=== PATIENT | female | born 1995 | race Asian ===

== ENCOUNTER 2020-09-27 11:09 | Outpatient (REF) | payer OTHER, SELFPAY ==
[2020-09-28 12:27] LABS: BV Int Neg Control Negative (Negative); BV Int Pos Control Positive (Positive)
[2020-09-28 18:57] LABS: C. trachomatis RNA TMA NOT DETECTED (NOT DETECTED); N. gonorrhoeae RNA TMA NOT DETECTED (NOT DETECTED)
== END 2020-09-27 11:10 | disposition home or self-care (01) ==
LOC: HO.LAB 11:09
PROVIDERS: PCP Family Medicine; Visit Provider Advanced Practice Midwife
DX: Z01.411 Encounter for gynecological examination (general) (routine) with abnormal findings (principal); N89.8 Other specified noninflammatory disorders of vagina; N92.1 Excessive and frequent menstruation with irregular cycle
CPT/HCPCS: 36415; 87480; 87491; 87510; 87591; 87660

== ENCOUNTER 2020-12-20 09:28 | Outpatient (REF) | payer OTHER, SELFPAY ==
[2020-12-21 11:29] LABS: CT PCR NOT DETECTED (Not Detect.); NG PCR NOT DETECTED (Not Detect.)
[2020-12-21 11:37] LABS: BV Int Neg Control Negative (Negative); BV Int Pos Control Positive (Positive)
== END 2020-12-20 09:29 | disposition home or self-care (01) ==
LOC: HO.LAB 09:28
PROVIDERS: PCP Nurse Practitioner Family; Visit Provider Advanced Practice Midwife
DX: Z11.3 Encounter for screening for infections with a predominantly sexual mode of transmission (principal); N89.8 Other specified noninflammatory disorders of vagina; N92.1 Excessive and frequent menstruation with irregular cycle; Z20.2 Contact with and (suspected) exposure to infections with a predominantly sexual mode of transmission
CPT/HCPCS: 87480; 87491; 87510; 87591; 87660

== ENCOUNTER → 2021-04-12 14:40 | Outpatient (BNVA) | payer OTHER, SELFPAY | PROVIDERS: PCP Nurse Practitioner Family; Visit Provider Advanced Practice Midwife ==

== ENCOUNTER 2022-01-29 14:15 | Outpatient (REF) | payer OTHER, SELFPAY ==
[2022-01-30 06:41] LABS: CT PCR NOT DETECTED (Not Detect.); NG PCR NOT DETECTED (Not Detect.)
[2022-01-30 13:19] LABS: BV Int Neg Control Negative (Negative); BV Int Pos Control Positive (Positive)
[2022-02-16 21:32] LABS: HPV 16 RNA NOT DETECTED (NOT DETECTED); HPV mRNA E6/E7 rflx Detected (Not Detected)
== END 2022-01-29 14:16 | disposition home or self-care (01) ==
LOC: HO.LAB 14:15
PROVIDERS: PCP Nurse Practitioner Family; Visit Provider Advanced Practice Midwife
DX: Z01.411 Encounter for gynecological examination (general) (routine) with abnormal findings (principal); Z11.51 Encounter for screening for human papillomavirus (HPV); Z20.2 Contact with and (suspected) exposure to infections with a predominantly sexual mode of transmission; R21 Rash and other nonspecific skin eruption
CPT/HCPCS: 87480; 87491; 87510; 87591; 87624; 87625; 87660; 88142

== ENCOUNTER 2022-02-14 10:16 | Outpatient (REF) | payer OTHER, SELFPAY | END 2022-02-14 10:17 | disposition home or self-care (01) | LOC: HO.LAB 10:16 | PROVIDERS: Visit Provider Advanced Practice Midwife | DX: Z13.89 Encounter for screening for other disorder (principal) ==

== ENCOUNTER 2023-04-17 13:58 | Outpatient (REF) | payer BC, SELFPAY ==
[2023-04-18 09:13] LABS: BV Int Neg Control Negative (Negative); BV Int Pos Control Positive (Positive)
[2023-04-18 14:22] LABS: CT PCR NOT DETECTED (Not Detect.); NG PCR NOT DETECTED (Not Detect.)
[2023-04-23 06:34] LABS: HPV mRNA E6/E7 rflx Not Detected (Not Detected)
== END 2023-04-17 13:59 | disposition home or self-care (01) ==
LOC: HO.LNP 13:58
PROVIDERS: PCP Nurse Practitioner Family; Visit Provider Advanced Practice Midwife
DX: Z01.419 Encounter for gynecological examination (general) (routine) without abnormal findings (principal); Z11.51 Encounter for screening for human papillomavirus (HPV); Z20.2 Contact with and (suspected) exposure to infections with a predominantly sexual mode of transmission
CPT/HCPCS: 0353U; 87480; 87510; 87624; 87660; 88142

== ENCOUNTER 2023-04-17 13:58 | Outpatient (AMB) | payer BC, SELFPAY ==
[2023-04-17 14:00] VITALS: BP 136/86; BMI 28.3
--- NOTE | 2023-04-17 14:00 | A.OFFVIS_ITS ---
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: No Information Interpreted: non-clinical & clinical Note Keeper: Note Keeper Present (Pedro) Allergies cat dander [CAT] Allergy (Intermediate, Verified 04/17/23 14:03) RUNNY NOSE WATERY EYES SNEEZING Medication List - Last Reconciled 04/17/23 by Gertrude Chappell CNM albuterol sulfate 90 mcg/actuation 2 inhalations inhalation Q6H PRN levonorgestrel-ethinyl estrad 0.1-20 mg-mcg 1 tab PO DAILY valacyclovir 500 mg PO DAILY Is last menstrual period known: Yes Last menstrual period: 03/28/23 Post menopausal: No 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 She thought she might be getting it recently but today feels fine and has no itching or odor today.. She is not as sexually active as she was in the past and maybe had sex only once this year. She still is on the control pills and wants to stay on them for sure. She also takes Valtrex daily for suppression and once when she had trouble getting the prescription refill because of pharmacy closures she was paranoid that she was getting an outbreak so for now she would like to stay on daily suppression. Very careful as well about hand washing and not touching her eyes because she uses contacts and she became aware of the possibility of cross contamination and is careful. She would not mind having a prescription for bacterial vaginosis in case she does get the symptoms again she is open to STI testing but for now she is not too worried and off to get blood work. She has a 6-1/2-year-old her and her mother helps her. She works out at least 3 times a week at [employer] and she was drinking and electrolyte powder that she adds to her water and noticed that it had a lot of sodium so wonders if that accounts for her slightly over normal blood pressure today [facility] Medical History Adopted (not a blood relative) Asthma Social History (Updated 04/17/23 @ 14:05 by HITESH Gomes) Household Members Other:: mom,son Housing: House Alcohol intake: former Patient Tobacco Use Status: Never used Tobacco Substance Use Type: Marijuana Sexual orientation: Straight/Heterosexual Gender identity: Female Female Reproductive History Menstrual Age of Menarche: 12 Duration of menses: 3-5 days Date of last menstrual period: 03/28/23 control method: pills Total pregnancies: 1 Full term: 1 Number of Living Children: 1 Date of last pap smear: 01/30/22 (+HPV) History of abnormal pap smear: Yes History of STI: Yes Physical Exam Vital Signs: Last Vital Signs BP 136/86 04/17/23 14:00 BMI result Body Mass Index 28.3 Const General: healthy appearing, comfortable, no acute distress, well developed and alert Nutritional Appearance: average body habitus Orientation/consciousness: patient oriented x3 Limitations: no limitations HEENT Head: Yes normocephalic Neck Neck: Yes normal visual inspection Chest Chest palpation & inspection: normal inspection of the chest Breast/axilla inspection: normal inspection of the breasts and normal inspection of the axillae Breast/axilla palpation: normal palpation of the breasts and normal palpation of the axillae Resp Effort & Inspection: normal respiratory effort GI Inspection: Yes normal to inspection, No Abdominal wall edema and No distended Palpation (GI): Soft to palpation and nontender Other: Vagina and labia slightly dark pink with small amount of white discharge that has some yeast curdy notice to it cervix multiparous normal long close thick firm uterus midposition nontender good tone with Kegel adnexa nontender. No lesions noted General: Yes bladder normal to palpation External Female Exam: normal external appearance and normal appearance of the urethra Speculum Exam - Vagina: normal appearance of the vagina, normal palpation and normal vaginal discharge Speculum Exam - Cervix: normal appearance of the cervix, normal palpation and nontender Bimanual exam- vagina & uterus: normal bimanual exam, normal palpation, uterine size normal, bladder normal to palpation, consistency normal, normal palpation, uterine mobility normal, uterine shape normal, No Cervical tenderness present, non-tender and no cervical motion tenderness Bimanual Exam- Adnexa, other: normal adnexae, no masses, normal and No adnexal tenderness Neuro General: patient oriented x3 Assessment & Plan Assessment & Plan (1) Cervical cancer screening: Comment: 12/18/2018 positive HPV. Pap done 01/29/2022= neg w pos HPV; pap done 04/17/23 w cotesting. Code(s): Z12.4 - Encounter for screening for malignant neoplasm of cervix (2) Well woman exam with routine gynecological exam: Code(s): Z01.419 - Encounter for gynecological examination (general) (routine) without abnormal findings (3) Counseling for control, oral contraceptives: Code(s): Z30.09 - Encounter for other general counseling and advice on contraception (4) Screen for sexually transmitted diseases: Code(s): Z11.3 - Encounter for screening for infections with a predominantly sexual mode of transmission (5) Bacterial vaginosis: Comment: Not current, but giving script for p.r.n. use with Teaching Code(s): N76.0 - Acute vaginitis; B96.89 - Other specified bacterial agents as the cause of diseases classified elsewhere (6) Yeast infection of the vagina: Comment: Currently asymptomatic but appears as if it is starting, Rx and given for p.r.n. with teaching Code(s): B37.31 - Acute candidiasis of vulva and vagina Plan -----Discussed in this visit the following: healthy balanced diet, regular and consistent exercise, getting recommended health screens, doing the best she can for her particular health concerns, kegel exercises, pap smear screening and followup recommendations, mammography screening and SBE, normal changes in cycles in her life stage--- . Pap smear was done testing for gonorrhea chlamydia trichomoniasis Gardnerella and Maira was done. ---Discussed the current research around the phenomena of bacterial vaginosis, and the many factors involved in the increase and change in the prevalence of certain bacteria in the vagina, that contribute to the clingy discharge, the fishy malodor, and the discomfort, that many women experience very frequently in their lives. Discussed the many factors that can promote it, and current thinking about best options for treatment of both the a 1 time episode, or frequently occurring episodes. Discussed the role of partner condom use. Discussed that previously, treatment was recommended for both partners, but is not currently recommended these days... Discussed the testing involved. Discussed treatment options including Flagyl, metronidazole gel, boric acid caps ules and others. ---I reviewed her symptoms ( which arent active now)we reviewed what she may have done alleviate symptoms. I reviewed contributing factors to yeast infection including clothing that may be a little tight or does not permit air to pass to the vulva well, including non cotton underwear, nylon and polyester type workout clothes and yoga pants, use of panty liners pads for periods etc. My recommendations include use of the medication that we decided upon, allowing air to her vulva as much as possible including wearing cotton underwear and possibly no underwear at night when possible. Any other contributing factors were explored. I encouraged her not to scratch. I reviewed what to do when she feels symptoms first starting, (re-double her efforts at allowing air to the area.) ---discussed control pills she wants to stay on them. She is not having any issues. I asked her just to keep an eye on her blood pressure and let me know if she does have elevated blood pressures for now she can stay on the control pills. -discussed HSV in some detail in terms of recurrences versus primary outbreak and suppression verses episodic treatment. She would like to stay on suppression at this time so I am refilling her prescription for year discussed the parameters of possibly trying to see if she did not need to be on suppression the whole time but the choice is up to her at this time. I initially read the Pap hx as negative but it was negative with positive HPV in 2019 and last year as well so I did ask her to come back into the office and I did the Pap smear and it will be said for Co testing as well. Will send her a letter if the Pap is normal but any abnormals we will notify her. Scripts were sent for Monistat for p.r.n. use Metrogel for p.r.n. use valacyclovir for daily use and her control pills for daily use. Orders: Orders Bacterial Vaginosis Panel Today Z01.419 - Encounter for gynecological examination (general) (routine) without abnormal findings CT NG by PCR Today Z01.419 - Encounter for gynecological examination (general) (routine) without abnormal findings Pap Smear Today Z01.419 - Encounter for gynecological examination (general) (routine) without abnormal findings, Z12.4 - Encounter for screening for malignant neoplasm of cervix Medications: New valacyclovir 500 mg PO DAILY 90 tabs 4RF miconazole nitrate 2% (Miconazole-7) For yeast infection 1 appful vaginal BEDTIME 7 days 45 grams 1RF metronidazole 0.75%(37.5mg/5gram) For bacterial vaginosis 1 appful vaginal BID 5 days 70 grams 1RF Refilled levonorgestrel-ethinyl estrad 0.1-20 mg-mcg 1 tab PO DAILY 84 tabs 4RF Coding Level of Care Code Est Pt Prev Care 18-39y([id number]) Diagnoses Cervical cancer screening Z12.4 Well woman exam with routine gynecological exam Z01.419 Counseling for control, oral contraceptives Z30.09 Screen for sexually transmitted diseases Z11.3 Bacterial vaginosis N76.0; B96.89 Yeast infection of the vagina B37.31
== END 2023-04-17 16:11 | disposition home or self-care (01) ==
LOC: HO.HWS 13:58
PROVIDERS: PCP Nurse Practitioner Family; Visit Provider Advanced Practice Midwife
DX: Z01.419 Encounter for gynecological examination (general) (routine) without abnormal findings (principal); Z11.3 Encounter for screening for infections with a predominantly sexual mode of transmission; N76.0 Acute vaginitis; B96.89 Other specified bacterial agents as the cause of diseases classified elsewhere; B37.31 Acute candidiasis of vulva and vagina
CPT/HCPCS: 99395